=== PATIENT | female | born 1985 | race African-American/Black ===

== ENCOUNTER 2024-07-04 04:17 | Day surgery (SDC) | payer OTHER ==
[2024-06-30 16:45] VITALS: BMI 25.3
[2024-07-04] MEDS ORDERED: MIDAZOLAM HCL 2 MG/2 ML SINGLE DOSE VIAL ONE (08:48)
[2024-07-04] MEDS ORDERED: PROPOFOL 20 ML ONE (09:23)
[2024-07-04] MEDS ORDERED: KETOROLAC TROMETHAMINE 30 MG/1 ML VIAL ONE (09:29)
[2024-07-04] MEDS ORDERED: oxyCODONE HCL 5 MG TABLET PO PRN (09:50)
[2024-07-04] MEDS ORDERED: ONDANSETRON 4 MG/2 ML VIAL IVPUSH PRN (09:50)
[2024-07-04] MEDS ORDERED: LACTATED RINGERS SOLUTION 1,000 ML IV SCH (10:00)
[2024-07-04] MEDS ORDERED: ACETAMINOPHEN 325 MG TABLET (FP) PO PRN (10:10)
[2024-07-04] MEDS ORDERED: IBUPROFEN 400 MG TABLET (FP) PO PRN (10:10)
[2024-07-04 11:18] VITALS: PULSE 72; RESP 18; TEMP 97.7
[2024-07-04 11:58] VITALS: BP 153/61
== END 2024-07-04 12:35 | disposition home or self-care (01) ==
LOC: JASU-SURG 04:17
PROVIDERS: ATTEND Obstetrics & Gynecology
PROC: 0UB97ZZ Excision of Uterus, Via Natural or Artificial Opening (ICD-10-PCS; principal; 2024-07-04 09:30)
PROC: 0UDB8ZX Extraction of Endometrium, Via Natural or Artificial Opening Endoscopic, Diagnostic (ICD-10-PCS; 2024-07-04 09:30)
DX: N84.0 Polyp of corpus uteri (principal); D25.0 Submucous leiomyoma of uterus; N80.03 Adenomyosis of the uterus
CPT/HCPCS: 81025; 88305-TC; 94760